=== PATIENT | female | born 1980 | race Caucasian/White ===

== ENCOUNTER 2018-04-07 08:57 | Emergency (ER) | payer MEDICARE, MEDICAID ==
[2018-04-07] MEDS ORDERED: Metoclopramide IV* 5 MG/ML 2 ML VIAL IV ONE (11:35)
[2018-04-07] MEDS ORDERED: NS 0.9% 1000 ML* 1,000 ML IV ONE (11:35)
[2018-04-07] MEDS ORDERED: diPHENhydraMINE IV* 50 MG/ML 1 ml VIAL (BENADRYL) IV ONE (11:35)
[2018-04-07] MEDS ORDERED: fentaNYL* 50 MCG/ML 2 ML VIAL (100 MCG VIAL) IV ONE (11:35)
--- NOTE | 2018-04-07 11:41 | ED ---
Headache - HPI Summary HPI Summary: This is scribe Az Sanchez documenting for attending Pranav Amado MD, . This patient is a 37 year old F presenting to [facility] with a chief complaint of headache since 1.5 weeks ago. She describes it as a brain headache with shock pains in the back of her neck. She reports that this is different from her migraine HAs before. The patient rates the pain 7/10 in severity currently. It was initially a 10/10 in severity. Patient reports neck pain, neck stiffness , blurred vision, ear pain, throat pain when swallowing, and light sensitivity. Patient denies fever, weakness or tingling in upper or lower extremities, sinus pain, sore throat, any rashes, tick bites, and vomiting. She went to [facility] 1.5 weeks ago, and ever since, she has had a bad SCOTT. Patient has a PMHx of migraine SCOTT, lupus, high BP, and kidney disease. She has had 2 C-sections, 2 ear surgeries, and an appendectomy. She does not smoke or use any other substances. Patient has a FHx of CAD. I, Dr. Amado, personally performed the services described in this documentation as scribed in my presence, and it is both accurate and complete. - History Of Current Complaint Chief Complaint: EDHeadache Stated Complaint: HEADACHE,HEAD PRESSURE Time Seen by Provider: 04/07/18 11:24 Hx Obtained From: Patient Onset/Duration: Sudden Onset, Started weeks ago - 1.5 weeks, Still Present Initially Headache Was: Initial Pain Scale(0-10)= - 10/10 Currently Pain Is: Current Pain Scale(0-10)= - 7/10 Timing: Constant, Weeks - since 1.5 weeks ago Character: Unable To Describe - brain headache with shock pains in the back of her neck Aggravating Factor: Nothing Allevating Factors: Nothing Associated Signs And Symptoms: Vomiting - Denies vomiting, Fever - Denies fever , Neck Pain, Neck Stiffness, Other (Noted In Comments) - Blurred vision, ear pain, throat pain when swallowing, and light sensitivity. Denies weakness or tingling in lower or upper extremities, denies sinus pain, denies sore throat, denies any rashes, and denies tick bites. - Allergies/Home Medications Allergies/Adverse Reactions: Allergies Allergy/AdvReac Type Severity Reaction Status Date / Time No Known Allergies Allergy Verified 04/07/18 09:03 PMH/Surg Hx/FS Hx/Imm Hx Endocrine/Hematology History: Reports: Hx Anemia - CURRENTLY Denies: Hx Bone Marrow Disease, Hx Sickle Cell Disease Cardiovascular History: Reports: Hx Hypertension - ON MEDICATION FOR History: Reports: Hx Kidney Stones - HX OF IN THE PAST Musculoskeletal History: Reports: Hx Arthritis - R/T LUPUS, Other Musculoskeletal History - LUPUS Sensory History: Reports: Hx Contacts or Glasses - WILL WEAR GLASSES DAY OF Denies: Hx Hearing Aid Opthamlomology History: Reports: Hx Contacts or Glasses - WILL WEAR GLASSES DAY OF Neurological History: Reports: Hx Headaches, Hx Migraine - DEPENDS ON BLOOD PRESSURE AND LUPUS, Other Neuro Impairments/Disorders - SYSTEMIC LUPUS - Surgical History Surgery Procedure, Year, and Place: 2 C-SECTIONS. TUBAL LIGATION-7 YEARS AGO. APPENDECTOMY-[facility]. RIGHT EAR SURGERY- 5 YEARS AGO-. ENDOMETRIAL ABLATION Hx Anesthesia Reactions: No Infectious Disease History: No Infectious Disease History: Denies: Traveled Outside the [place] in Last 30 Days - Family History Known Family History: Positive: Cardiac Disease - Social History Occupation: Employed Full-time Alcohol Use: Rare Substance Use Type: Reports: None Smoking Status (MU): Never Smoked Tobacco Review of Systems Negative: Fever Positive: Photophobia, Blurred Vision Positive: Ear Ache - Ear pain, Other - Throat pain when swallowing. Denies sinus pain. Negative: Sore Throat Negative: Vomiting Positive: Other - Neck pain, neck stiffness Positive: Other - Denies any tick bites. Negative: Rash Positive: Headache - brain headache with shock pains in the back of her neck. Negative: Weakness - in extremities, Paresthesia - in extremities All Other Systems Reviewed And Are Negative: Yes Physical Exam - Summary Physical Exam Summary: VITAL SIGNS: Reviewed. GENERAL: Patient is a well-developed and nourished FEMALE who is lying comfortable in the stretcher. Patient is not in any acute respiratory distress. No meningeal signs. HEAD AND FACE: No signs of trauma. No ecchymosis, hematomas or skull depressions. No sinus tenderness. EYES: PERRLA, EOMI x 2, No injected conjunctiva, no nystagmus. EARS: Hearing grossly intact. Ear canals and tympanic membranes are within normal limits. MOUTH: Oropharynx within normal limits. NECK: Supple, trachea is midline, no adenopathy, no JVD, no carotid bruit, no c- spine tenderness, neck with full ROM. CHEST: Symmetric, no tenderness at palpation LUNGS: Clear to auscultation bilaterally. No wheezing or crackles. CVS: Regular rate and rhythm, S1 and S2 present, no murmurs or gallops appreciated. ABDOMEN: Soft, non-tender. No signs of distention. No rebound no guarding, and no masses palpated. Bowel sounds are normal. EXTREMITIES: FROM in all major joints, no edema, no cyanosis or clubbing. NEURO: Alert and oriented x 3. No acute neurological deficits. Speech is normal and follows commands. SKIN: Dry and warm Triage Information Reviewed: Yes Vital Signs On Initial Exam: Initial Vitals Temp Pulse Resp BP Pulse Ox 97.9 F 76 18 139/103 99 04/07/18 09:00 04/07/18 09:00 04/07/18 09:00 04/07/18 09:00 04/07/18 09:00 Vital Signs Reviewed: Yes Diagnostics - Vital Signs Vital Signs Temp Pulse Resp BP Pulse Ox 04/07/18 10:37 97.8 F 73 16 133/84 100 04/07/18 09:00 97.9 F 76 18 139/103 99 - Laboratory Result Diagrams: 04/07/18 12:05 04/07/18 12:05 Lab Statement: Any lab studies that have been ordered have been reviewed, and results considered in the medical decision making process. - CT Brain CT CT Interpretation Completed By: Radiologist - Taken at 12:56. NO ACUTE INTRACRANIAL PATHOLOGY. ED Physician has reviewed this report. Re-Evaluation - Re-Evaluation 1 Re-Evaluation Time: 13:52 Change: Improved Comment: Patient is doing much better. Her pain is now at a 1/10 in severity. Headache Course/Dx - Course Assessment/Plan: This patient is a 37-year-old female who presents to the emergency department with a chief complaint of having a headache. Patient reports that she has history of migraine headaches however this headache is a little bit different from her usual. She started having this headache approximately one and a half weeks ago and has been persistent since then. She reports that before he was 10 out of 10 and right now is only about 6-7 out of 10. She reports nausea without vomiting. She reports neck pain but denies any neck stiffness. She denies any photophobia. However she reports that when the pain is severe she has blurred vision. Physical exam reveals no meningeal signs , She does not have any cervical spine tenderness however she has pain along the sternocleidomastoid muscle and the trapezius muscle. Blood test results shows a hemoglobin of 10 hematocrit of 30 MCV 93. Urinalysis is negative for UTI. Head CT is negative for an acute interconnected pathology. In the ED course the patient was given Benadryl, Reglan, and fentanyl. Patient also was given IV fluids and her symptoms significantly improved. At this time the patient is feeling better. The patients pain is only 1 out of 10. She is able to eat and drink. Neurological examination is within normal limits, she doesnt have any meningeal signs. She does have any fevers or chills to think that the patient has meningitis. I discussed all the findings and test results with the patient. Patient was instructed to return to the emergency room immediately if any of the symptoms return or worsens. Plan of care was discussed with the patient and understands and agrees. All questions were answered at patient satisfaction. There were no further complaints or concerns. Lung exam before discharge: CTA B/L. Good air exchange. No wheezing or crackles heard. CVS: S1 and S2 present. No murmurs appreciated. Patient is alert and oriented x 3. Patient is hemodynamically stable. Patient will be discharged home with follow up PCP in the next 2-3 days - Diagnoses Differential Diagnosis/HQI/PQRI: CVA, TIA, Meningitis, Migraine, Sinus Headache , Subarachnoid Hemorrhage, Tension Headache, Viral Syndrome Provider Diagnoses: Migraine headache Discharge - Sign-Out/Discharge Documenting (check all that apply): Patient Departure - D/C - Discharge Plan Condition: Stable Disposition: HOME Prescriptions: Cyclobenzaprine TAB* [Flexeril 10 MG TAB*] 10 mg PO TID PRN #12 tab PRN Reason: Spasms diPHENhydraMINE PO* [Benadryl PO 25 MG TAB*] 25 mg PO TID PRN #30 tab PRN Reason: Pain Metoclopramide TAB* [Reglan TAB*] 10 mg PO Q8H PRN #10 tab PRN Reason: Nausea Patient Education Materials: Migraine Headache (ED) Referrals: Jeremy Cervantes MD [Primary Care Provider] - 3 Days Additional Instructions: RETURN TO THE ED FOR ANY WORSENING OR NEW SYMPTOMS
[2018-04-07 12:12] LABS: Urine Appearance Clear; Urine Blood Negative (Negative); Urine Color Colorless; Urine Ketones Negative (Negative); Urine Protein 1+(30 mg/dL) (Negative); Urine Red Blood Cell Absent (Absent); Urine Specific Gravity 1.003 (1.010-1.030); Urine Urobilinogen Negative (Negative); Urine White Blood Cell Absent (Absent)
[2018-04-07 12:15] LABS: ABS Basophils 0.1 10^3/ul (0-0.2); ABS Eosinophils 0.2 10^3/ul (0-0.6); ABS Lymphocytes 1.4 10^3/ul (1.0-4.8); ABS Monocytes 0.6 10^3/ul (0-0.8); ABS Nucleated RBC 0 10^3/ul; Eosinophil % 2.1 % (0-6); Hematocrit 30 % (35-47); Mean Corpuscular HGB Conc 33 g/dl (31-36); Mean Corpuscular Hemoglobin 31 pg (27-31); Mean Corpuscular Volume 93 fL (80-97); Mean Platelet Volume 8.9 um3 (7.4-10.4); Nucleated Red Blood Cells % 0; Platelet Count 226 10^3/ul (150-450); Red Blood Count 3.23 10^6/ul (4.00-5.40); Red Cell Distribution Width 14 % (10.5-15); White Blood Count 7.2 10^3/ul (3.5-10.8)
--- NOTE | 2018-04-07 12:59 | RAD ---
HISTORY: Headache COMPARISONS: None TECHNIQUE: Multiple contiguous axial CT scans were obtained of the head without intravenous contrast. FINDINGS: HEMORRHAGE/INFARCT: There is no hemorrhage or acute infarct. MASSES/SHIFT: There is no mass or shift. EXTRA-AXIAL SPACES: There are no extra-axial fluid collections. SULCI AND VENTRICLES: The sulci and ventricles are normal in size and position for the patient's stated age. CEREBRUM: There are no focal parenchymal abnormalities. BRAINSTEM: There are no focal parenchymal abnormalities. CEREBELLUM: There are no focal parenchymal abnormalities. VESSELS: The vessels are grossly normal. PARANASAL SINUSES: The paranasal sinuses are clear. ORBITS: The orbits are unremarkable. BONES AND SOFT TISSUE: No bone or soft tissue abnormalities are noted. OTHER: None IMPRESSION: NO ACUTE INTRACRANIAL PATHOLOGY.
[2018-04-07 15:20] LABS: EGFR Non-African American 21.6 (>60)
[2018-04-07 15:40] VITALS: BP 128/76
== END 2018-04-07 15:39 | disposition home or self-care (01) ==
LOC: ED 08:57
DX: G43.909 Migraine, unspecified, not intractable, without status migrainosus (principal); M32.9 Systemic lupus erythematosus, unspecified; I10 Essential (primary) hypertension; N28.9 Disorder of kidney and ureter, unspecified; Z79.899 Other long term (current) drug therapy; Z82.49 Family history of ischemic heart disease and other diseases of the circulatory system
CPT/HCPCS: 36415; 70450; 80053; 81003; 81015; 82375; 84702; 85025; 85652; 86140; 96374; 96375; 99283; J1200; J2765; J3010